=== PATIENT | female | born 1960 | race Caucasian/White ===

== ENCOUNTER 2017-05-16 11:36 | Emergency (ER) | payer MEDICAID ==
[2017-05-16 11:44] VITALS: RESP 18; TEMP 98.1; O2SAT 96
--- NOTE | 2017-05-16 12:20 | EDPHY ---
H & P Smoking Status: Former smoker Time Seen by Provider: 05/16/17 12:00 HPI/ROS: CHIEF COMPLAINT: Bit by cat HISTORY OF PRESENT ILLNESS: 56-year-old male presents to the emergency department with a cat bite to her right wrist. The patient states last night sometime in the middle of the night her cat who was in her bed bit her in her right wrist. The cat has been her before. She thought that she heard a "snap. " She is right-hand dominant. Denies any other trauma or injury. She has pain especially with range of motion. Tetanus shot is current. Cat is vaccinated. ROS: Denies numbness or tingling in her fingers, retained foreign body, injury to her right elbow. Denies fevers or chills. (Jaja Malik) Past Medical/Surgical History: Depression, hypothyroidism (Jaja Malik) Social History: Single (Jaja Malik) Physical Exam: On examination the patient has a small puncture wound to the dorsal aspect of her right wrist as well small puncture wound overlying distal radius of the right wrist. She is some mild swelling. Tender to palpate especially the dorsal aspect of her right wrist. She is able to fully supinate although this does cause pain. She has full extension of the right wrist although this does cause discomfort. Full flexion. Normal sensation to light touch with normal 2 point discrimination. Strong radial pulse at the right wrist. Full flexion extension of the right elbow. Afebrile. No lymphangitis. (Jaja Malik) Constitutional: Initial Vital Signs Temperature (C) 36.7 C 05/16/17 11:40 Heart Rate 63 05/16/17 11:40 Respiratory Rate 18 05/16/17 11:40 Blood Pressure 139/74 H 05/16/17 11:40 O2 Sat (%) 96 05/16/17 11:40 O2 Delivery Mode Room Air Allergies/Adverse Reactions: No Known Allergies Allergy (Verified 05/16/17 11:41) Home Medications: Medication Instructions Recorded Bupropion HCl 300 mg PO DAILY 02/12/16 Levothyroxine 88 mcg PO DAILY 02/12/16 Sertraline HCl 200 mg PO DAILY 02/12/16 Amoxicillin/Clavulanate Pot 875 mg PO BID #14 tab 05/16/17 [Augmentin 875 mg tab] MDM/Departure - MDM Imaging: I viewed and interpreted images myself - [facility] Imaging Results: Imaging Impressions Wrist X-Ray 05/16/17 12:16 Impression: Negative for acute osseous abnormality or foreign body. X-rays of the right wrist reveal no fractures and no evidence of retained foreign body. This is reviewed by myself the PAC system. Radiology interpretation to follow. (Jaja Malik) Procedures: Patient was placed in a Velcro wrist splint and examined post application in good placement with normal BREASTER. (Jaja Malik) ED Course/Re-evaluation: 56-year-old female presents to the emergency department with cat bite to the right wrist. X-rays reveal no fractures or evidence of retained foreign body. She was placed on Augmentin for prophylaxis. Return to the emergency department if you develop fever, red streaking up your arm, increasing pain, or if you feel worse in any way. (Jaja Malik) I did not see this patient while she was in the emergency department. However her care was discussed with the PA while the patient was in the department. I agree with treatment plan and management (Devin Moser) - Depart Disposition: Home, Routine, Self-Care Clinical Impression: Cat bite of right wrist Qualifiers: Encounter type: initial encounter Qualified Code(s): S61.551A - Open bite of right wrist, initial encounter Condition: Good Instructions: Animal Bite (ED), Acute Wounds (ED) Additional Instructions: Augmentin 875 mg twice daily for 1 week to prevent infection. Return to the emergency department if you develop increased redness, increased pain, red streaking up your arm, or if you feel worse in any way. Prescriptions: Amoxicillin/Clavulanate Pot [Augmentin 875 mg tab] 875 mg PO BID #14 tab Referrals: Lubna Gutierrez PA [Primary Care Provider] - 1 day, if not improved
[2017-05-16 12:58] VITALS: BP 128/96; PULSE 70
== END 2017-05-16 12:57 | disposition home or self-care (01) ==
DX: S61.551A Open bite of right wrist, initial encounter (principal); W55.01XA Bitten by cat, initial encounter; Z87.891 Personal history of nicotine dependence
CPT/HCPCS: L3908

== ENCOUNTER → 2017-11-03 | Outpatient (CLI) | payer MEDICAID | LOC: FIMAGING 13:34 | PROVIDERS: ATTEND Physician Assistant | DX: Z12.31 Encounter for screening mammogram for malignant neoplasm of breast (principal) ==